=== PATIENT | male | born 1995 | race Caucasian/White ===

== ENCOUNTER 2016-10-28 08:47 | Emergency (ER) | payer OTHER ==
[2016-10-28 09:02] VITALS: RESP 16
[2016-10-28] MEDS ORDERED: ONDANSETRON 4 MG/2 ML VIAL IVP ONE ×2 (09:06→09:22)
[2016-10-28] MEDS ORDERED: NS 1,000 ML IV ONE (09:22)
[2016-10-28] MEDS ORDERED: HYDROmorphONE/DILAUDID 1 MG/ML SYR IVP ONE (09:22)
[2016-10-28 09:25] LABS: % IMMATURE GRANULYOCYTES 0.7 % (0.0-1.1); ABSOLUTE IMMATURE GRANULOCYTES 0.05 10^3/uL (0.00-0.10); ADD DIFF? NO; ADD MORPH? NO; ADD SCAN? NO; ATYPICAL LYMPHOCYTE FLAG 40 (0-99); FRAGMENT RBC FLAG 0 (0-99); HEMATOCRIT 45.8 % (40.0-51.0); HEMOGLOBIN 15.6 g/dL (13.7-17.5); LEFT SHIFT FLG 0 (0-99); LIPEMIA HEMOLYSIS FLAG 90 (0-99); MEAN CELL HEMOGLOBIN CONCENTR. 34.1 g/dL (32.4-36.7); MEAN CELL VOLUME 88.1 fL (81.5-99.8); PLATELET CLUMPS FLAG 10 (0-99); PLATELET COUNT 250 10^3/uL (150-400); RED CELL DISTRIBUTION WIDTH 12.3 % (11.5-15.2)
[2016-10-28 09:49] LABS: ALANINE AMINOTRANSFERASE 54 IU/L (21-72); ALBUMIN 4.7 g/dL (3.5-5.0); ALKALINE PHOSPHATASE 74 IU/L (38-126); ANION GAP 14 mEq/L (8-16); ASPARTATE AMINOTRANSFERASE 36 IU/L (17-59); BILIRUBIN,TOTAL 0.4 mg/dL (0.1-1.4); BILIRUBIN-CONJUGATED 0.3 mg/dL (0.0-0.5); BILIRUBIN-UNCONJUGATED 0.1 mg/dL (0.0-1.1); CALCIUM 10.5 mg/dL (8.5-10.4); CARBON DIOXIDE 23 mEq/l (22-31); CHLORIDE 103 mEq/L (97-110); CREATININE 1.1 mg/dL (0.7-1.3); GLOMERULAR FILTRATION RATE > 60; GLUCOSE 95 mg/dL (70-100); POTASSIUM 4.7 mEq/L (3.5-5.2); SODIUM 140 mEq/L (134-144); TOTAL PROTEIN 7.9 g/dL (6.3-8.2)
[2016-10-28] MEDS ORDERED: IOPAMIDOL (ISOVUE-300) 100 ML BTL IV ONE (11:04)
[2016-10-28] MEDS ORDERED: KETOROLAC 30 MG/1 ML SDV ONE (12:16)
[2016-10-28] MEDS ORDERED: KETOROLAC 30 MG/1 ML SDV IM ONE (12:18)
[2016-10-28 12:33] LABS: COLOR PALE YELLOW; LEUKOCYTE ESTERASE,URINE NEGATIVE (NEGATIVE); NITRITE,URINE NEGATIVE (NEGATIVE)
--- NOTE | 2016-10-28 12:38 | EDPHY ---
H & P Stated Complaint: RLQ pain HPI/ROS: Chief complaint: Abdominal pain History of present illness: This is a 21 year old male who presents to the emergency department for evaluation of abdominal pain. Patient reports the onset of symptoms this morning. He describes diffuse pain most pronounced in the epigastric and right lower quadrant. He has had associated loss of appetite , nausea without vomiting and soft stools. He denies precipitating factors. He denies alleviating factors. He denies other associated signs or symptoms including no fevers, no urinary symptoms. Review of systems: A 10 point review of systems was obtained and other than described above was negative - Personal History Current Tetanus Diphtheria and Acellular Pertussis (TDAP): Yes - Medical/Surgical History Hx Asthma: No Hx Chronic Respiratory Disease: No Hx Diabetes: No Hx Cardiac Disease: No Hx Renal Disease: No Hx Cirrhosis: No Hx Alcoholism: No Hx HIV/AIDS: No Hx Splenectomy or Spleen Trauma: No Other PMH: HTN - Social History Smoking Status: Never smoked - Physical Exam Exam: General Appearance: Alert, nontoxic. Eyes: Pupils equal and round no pallor or injection. ENT, Mouth: Mucous membranes moist. Respiratory: There are no retractions, lungs are clear to auscultation. Cardiovascular: Regular rate and rhythm. Gastrointestinal: Bowel sounds are normal. Abdomen is soft and nondistended. There is tenderness in the right lower quadrant. No peritoneal signs. Genitourinary: No CVA tenderness. No suprapubic tenderness. There are no lesions on the penis or scrotum. No urethral discharge. The testicles and surrounding cord structures are nontender non edematous. Cremaster is present. No hernias appreciated. Neurological: Alert and oriented x4. Strength and sensation intact and symmetrical. Skin: Warm and dry, no rashes. Musculoskeletal: Neck is supple nontender. Extremities are symmetrical, full range of motion. Psychiatric: Patient is oriented X 3, there is no agitation. Constitutional: Initial Vital Signs Temperature (C) 36.6 C 10/28/16 08:57 Heart Rate 65 10/28/16 08:57 Respiratory Rate 16 10/28/16 08:57 Blood Pressure 136/77 H 10/28/16 08:57 O2 Sat (%) 95 10/28/16 08:57 O2 Delivery Mode Room Air Allergies/Adverse Reactions: No Known Allergies Allergy (Unverified 05/08/15 17:54) Home Medications: Medication Instructions Recorded Ondansetron Odt [Zofran Odt 4 mg 4 mg PO Q4 #6 tab 10/28/16 (*)] Zoloft 50mg (*) 10/28/16 Medical Decision Making - Diagnostics Imaging: Imaging Impressions Abdomen Ultrasound 10/28/16 09:23 Impression: No sonographic evidence of appendicitis. I telephoned results to Dr. Sanchez at [address] 10/28/16 10:58 Impression: 1. Constipation. No CT findings for appendicitis. 2. Degenerative disk disease at L5-S1. Probable osteitis pubis. Results called and discussed with Jus Paige PA-C on October 28, 2016 at 1133 hours. ED Course/Re-evaluation: Patient seen under the supervision of my secondary supervising physician Dr. Adan Sanchez. Patient presents to the emergency depart with abdominal pain. He is nontoxic. Afebrile and vital signs are stable. Physical exam did reveal tenderness at McBurney's point. Blood studies and urinalysis unremarkable. Ultrasound appears to show a normal appendix. I have consulted with Dr. Adryan Figueroa, surgeon, in person. He does recommend a CT scan to ensure appendix is normal. CT is obtained and unremarkable. Prior to discharge patient did report that he was recently in [place]. I ordered stool studies but he was unable to provide sample. Patient was symptomatically treated in the ER reported he felt much better. Patient is discharged home. Home care is discussed. He is asked to follow up with primary care doctor for recheck. Strict return precautions are given. Patient voiced understanding and agreement with plan. Differential Diagnosis: Included but not limited to gastroenteritis, gastritis, biliary tract disease, pancreatitis, appendicitis, colitis, diverticulitis, urinary tract disease - Data Points Laboratory Results: Laboratory Results 10/28/16 09:15 10/28/16 09:15 10/28/16 10/28/16 10/28/16 12:20 09:15 09:15 WBC 6.86 10^3/uL 10^3/uL (3.80-9.50) RBC 5.20 10^6/uL 10^6/uL (4.40-6.38) Hgb 15.6 g/dL g/dL (13.7-17.5) Hct 45.8 % % (40.0-51.0) MCV 88.1 fL fL (81.5-99.8) MCH 30.0 pg pg (27.9-34.1) MCHC 34.1 g/dL g/dL (32.4-36.7) RDW 12.3 % % (11.5-15.2) Plt Count 250 10^3/uL 10^3/uL (150-400) MPV 10.0 fL fL (8.7-11.7) Neut % (Auto) 72.5 % % (39.3-74.2) Lymph % (Auto) 18.4 % % (15.0-45.0) [place] % (Auto) 7.3 % % (4.5-13.0) Eos % (Auto) 0.7 % % (0.6-7.6) Baso % (Auto) 0.4 % % (0.3-1.7) Nucleat RBC Rel Count 0.0 % % (0.0-0.2) Absolute Neuts (auto) 4.97 10^3/uL 10^3/uL (1.70-6.50) Absolute Lymphs (auto) 1.26 10^3/uL 10^3/uL (1.00-3.00) Absolute Monos (auto) 0.50 10^3/uL 10^3/uL (0.30-0.80) Absolute Eos (auto) 0.05 10^3/uL 10^3/uL (0.03-0.40) Absolute Basos (auto) 0.03 10^3/uL 10^3/uL (0.02-0.10) Absolute Nucleated RBC 0.00 10^3/uL 10^3/uL (0-0.01) Immature Gran % 0.7 % % (0.0-1.1) Immature Gran # 0.05 10^3/uL 10^3/uL (0.00-0.10) Sodium 140 mEq/L mEq/L (134-144) Potassium 4.7 mEq/L mEq/L (3.5-5.2) Chloride 103 mEq/L mEq/L (97-110) Carbon Dioxide 23 mEq/l mEq/l (22-31) Anion Gap 14 mEq/L mEq/L (8-16) BUN 17 mg/dL mg/dL (7-23) Creatinine 1.1 mg/dL mg/dL (0.7-1.3) Estimated GFR > 60 Glucose 95 mg/dL mg/dL (70-100) Calcium 10.5 mg/dL H mg/dL (8.5-10.4) Total Bilirubin 0.4 mg/dL mg/dL (0.1-1.4) Conjugated Bilirubin 0.3 mg/dL mg/dL (0.0-0.5) Unconjugated Bilirubin 0.1 mg/dL mg/dL (0.0-1.1) AST 36 IU/L IU/L (17-59) ALT 54 IU/L IU/L (21-72) Alkaline Phosphatase 74 IU/L IU/L (38-126) Total Protein 7.9 g/dL g/dL (6.3-8.2) Albumin 4.7 g/dL g/dL (3.5-5.0) Lipase 95.0 IU/L IU/L (23-300) Urine Color PALE YELLOW Urine Appearance CLEAR Urine pH 6.0 (5.0-7.5) Ur Specific [place] > 1.035 H (1.002-1.030) Urine Protein NEGATIVE (NEGATIVE) Urine Ketones NEGATIVE (NEGATIVE) Urine Blood NEGATIVE (NEGATIVE) Urine Nitrate NEGATIVE (NEGATIVE) Urine Bilirubin NEGATIVE (NEGATIVE) Urine Urobilinogen NEGATIVE EU EU (0.2-1.0) Ur Leukocyte Esterase NEGATIVE (NEGATIVE) Ur Culture Indicated? NOT INDICATED (NI) Urine Glucose NEGATIVE (NEGATIVE) Medications Given: Discontinued Medications Hydromorphone HCl (Dilaudid) 0.5 mg IVP EDNOW ONE Stop: 10/28/16 09:23 Last Admin: 10/28/16 09:40 Dose: 0.5 mg Sodium Chloride (Ns) 1,000 mls @ 0 mls/hr IV ONCE ONE PRN Reason: Wide Open Stop: 10/28/16 09:23 Last Admin: 10/28/16 09:25 Dose: 1,000 mls Ketorolac Tromethamine (Toradol) 30 mg IM EDNOW ONE Stop: 10/28/16 12:19 Last Admin: 10/28/16 12:19 Dose: 30 mg Ondansetron HCl (Zofran) 4 mg IVP EDNOW ONE Stop: 10/28/16 09:23 Last Admin: 10/28/16 09:40 Dose: 4 mg Departure - Departure Disposition: Home, Routine, Self-Care Clinical Impression: Abdominal pain Qualifiers: Abdominal location: generalized Qualified Code(s): R10.84 - Generalized abdominal pain Condition: Good Instructions: Acute Abdominal Pain (ED) Additional Instructions: Follow-up with the primary care doctor in the next day for recheck Discussed pursuing stool studies with the primary care doctor If symptoms worsen or new symptoms develop return to the emergency room immediately for recheck Referrals: NONE *PRIMARY CARE P,. [Primary Care Provider] - As per Instructions Ivania Sampson MD [Medical Doctor] - As per Instructions Prescriptions: Ondansetron Odt [Zofran Odt 4 mg (*)] 4 mg PO Q4 #6 tab
[2016-10-28 12:56] VITALS: BP 122/65; PULSE 54; TEMP 98.2; O2SAT 98
== END 2016-10-28 12:56 | disposition home or self-care (01) ==
DX: R10.84 Generalized abdominal pain (principal); I10 Essential (primary) hypertension
CPT/HCPCS: 96374; J1170; J1885; J2405; Q9967